=== PATIENT | male | born 1965 | race African-American/Black ===

== ENCOUNTER 2020-06-10 11:26 | Emergency (ER) | payer BC ==
[2020-06-10] MEDS ORDERED: NORMAL SALINE 1000 ML 1,000 ML IV ONE (13:49)
[2020-06-10] MEDS ORDERED: ONDANSETRON HCL INJ/PF 4 MG/2 ML SDV IV ONE (13:49)
--- NOTE | 2020-06-10 14:15 | RADIOLOGY REPORT (SQ) ---
EXAM DESCRIPTION: CT HEAD WITHOUT IMAGES COMPLETED DATE/TIME: 06/10/2020 2:03 pm REASON FOR STUDY: headache COMPARISON: None. TECHNIQUE: Axial images acquired through the brain without intravenous contrast. Images reviewed wi th bone, brain and subdural windows. Additional sagittal and coronal reconstructions were generated. Images stored on PACS. All CT scanners at this facility use dose modulation, iterative reconstruction, and/or weight based d osing when appropriate to reduce radiation dose to as low as reasonably achievable (ALARA). [facility]: Dose Right [facility]: CareDose [facility]: Dose Right [facility]: Teradose 4D [facility]: [employer] RADIATION DOSE: CT Rad equipment meets quality standard of care and radiation dose reduction techniq ues were employed. CTDIvol: 53.2 mGy. DLP: 937 mGy-cm. mGy. LIMITATIONS: None. FINDINGS: VENTRICLES: Normal size and contour. CEREBRUM: No masses. No hemorrhage. No midline shift. No evidence for acute infarction. Normal gra y/white matter differentiation. No areas of low density in the white matter. CEREBELLUM: No masses. No hemorrhage. No alteration of density. No evidence for acute infarction. EXTRAAXIAL SPACES: No fluid collections. No masses. ORBITS AND GLOBE: No intra- or extraconal masses. Normal contour of globe without masses. CALVARIUM: No fracture. PARANASAL SINUSES: No fluid or mucosal thickening. SOFT TISSUES: No mass or hematoma. OTHER: No other significant finding. IMPRESSION: NORMAL BRAIN CT WITHOUT CONTRAST. EVIDENCE OF ACUTE STROKE: NO. COMMENT: Quality ID # [id number]: Final reports with documentation of one or more dose reduction techniques (e.g., Automated exposure control, adjustment of the mA and/or kV according to patient size, use of iterative reconstruction technique) TECHNICAL DOCUMENTATION: JOB ID: [id number] 2010 [employer]- All Rights Reserved Reading location - IP/workstation name: [email or web address]
[2020-06-10 14:20] LABS: ABSOLUTE LYMPHOCYTES (AUTO) 0.8 10^3/uL (0.5-4.7); ABSOLUTE MONOCYTES (AUTO) 0.4 10^3/uL (0.1-1.4); BASOPHILS % (AUTO) 0.2 % (0-2); EOSINOPHILS % (AUTO) 0.1 % (0-6); HEMOGLOBIN 13.3 g/dL (13.5-17.0); LYMPHOCYTES % (AUTO) 13.1 % (13-45); MEAN CORPUSCULAR HEMOGLOBIN 31.4 pg (27.0-33.4); MEAN CORPUSCULAR HGB CONC 35.1 g/dL (32.0-36.0); MEAN CORPUSCULAR VOLUME 89 fl (80-97); MONOCYTES % (AUTO) 5.9 % (3-13); PLATELET COUNT 176 10^3/uL (150-450); RED BLOOD COUNT 4.25 10^6/uL (4.35-5.55); RED CELL DISTRIBUTION WIDTH 13.8 % (11.5-14.0); SEGMENTED NEUTROPHILS % (AUTO) 80.7 % (42-78); TOTAL CELLS COUNTED % (AUTO) 100 %; WHITE BLOOD COUNT 6.1 10^3/uL (4.0-10.5)
--- NOTE | 2020-06-10 14:21 | EKG REPORT ---
SEVERITY:- NORMAL ECG - SINUS RHYTHM : Confirmed by: Chandra Du MD 10-Jun-2020 14:20:17
--- NOTE | 2020-06-10 14:23 | ER Document Report ---
ED General - General Chief Complaint: Nausea/Vomiting Stated Complaint: HEADACHE/VOMITING Time Seen by Provider: 06/10/20 13:34 Notes: 84-year-old male presents to the emergency department complaining of nausea vomiting and dizziness. The patient was at the [facility] and ate some food late last night that was tasting funny. This morning he felt a little bit nauseous when he awoke and went to go fishing he is visiting from [facility] and is on a fishing trip. Unfortunately he began to vomit this morning. [place] really dizzy. Denies any headache or blurred vision denies extremity numbness tingling or weakness is feels dizzy upon standing. He denies any abdominal pain does have some crampiness that is resolved after vomiting. He has had a few loose stools no black bloody or tarry stool. Denies fever chills cough or sore throat. - Related Data Home Medications: Lisinopril Past Medical History - Social History Smoking Status: Never Smoker Family History: Reviewed & Not Pertinent - Past Medical History Cardiac Medical History: Reports: Hx Hypertension Review of Systems - Review of Systems Constitutional: denies: Chills, Fever Respiratory: denies: Cough, Short of breath Gastrointestinal: Nausea, Vomiting Genitourinary: denies: Dysuria, Flank pain -: Yes All other systems reviewed and negative Physical Exam - Vital signs Vitals: Temp Pulse Resp BP Pulse Ox 97.8 F 62 16 134/71 H 100 06/10/20 11:34 06/10/20 11:34 06/10/20 11:34 06/10/20 11:34 06/10/20 11:34 - Notes Notes: GENERAL_APPEARANCE: well_nourished, alert, cooperative, no_acute_distress, no_obvious_discomfort. VITALS: reviewed, see vital signs table. HEAD: no_swelling\tenderness on the head. EYES: PERRL, EOMI, conjunctiva_clear. NOSE: no_nasal_discharge. MOUTH: Dry tongue and mucous membranes THROAT: no_tonsilar_inflammation, no_airway_obstruction. no_lymphadenopathy NECK: supple, no_neck_tenderness, (-)thyromegaly. BACK: no_back_tenderness. CHEST_WALL: no_chest_tenderness. LUNGS: no_wheezing, no_rales, no_rhonchi, (-)accessory muscle use, good air exchange bilateral. HEART: normal_rate, normal_rhythm, normal_S1, normal_S2, (-)S3, (-)S4, no_murmur, no_rub. ABDOMEN: normal_BS, soft, no_abd_tenderness, (-)guarding, (-)rebound, no_organomegaly, no_abd_masses. EXTREMITIES: strength 5/5 in all_extremities, good pulses in all_extremities, no_swelling\tenderness in the extremities, no_edema. SKIN: warm, dry, good_color, no_rash. MENTAL_STATUS: speech_clear, oriented_X_3, normal_affect, responds_appropriately to questions. NEURO: Neg Motor or Sensory Deficits on exam, CN 2-12 intact, DTR 2+ symmetric x 4, No cerbellar signs Course - Re-evaluation Re-evalutation: 06/10/20 14:24 54-year-old male presents to the ER complaining nausea vomiting and dizziness. Sounds as if the patient may have got food poisoning from the Yi he ate last night. We will give him some IV fluids nausea medicine. He does complain of dizziness upon standing. Will do a full work-up on him and monitor him closely. 06/10/20 15:19 CT scan is normal no signs of any stroke hemorrhages or otherwise. Patient felt much better after liter of IV fluid he was likely dehydrated from vomiting. He felt better after Zofran. Will prescribe some Zofran for home for the patient. This may likely be viral or food poisoning. Advised patient to stay here go back in the morning with his . Patient verbalized understanding of any additional problems return to the ER and follow-up with his family doctor. - Vital Signs Vital signs: Temp Pulse Resp BP Pulse Ox 97.8 F 62 16 134/71 H 100 06/10/20 11:34 06/10/20 11:34 06/10/20 11:34 06/10/20 11:34 06/10/20 11:34 - Laboratory Result Diagrams: 06/10/20 13:53 06/10/20 13:53 Laboratory results interpreted by me: 06/10/20 06/10/20 13:53 13:53 RBC 4.25 L Hgb 13.3 L Seg Neutrophils % 80.7 H Glucose 161 H - Diagnostic Test Radiology reviewed: Reports reviewed Radiology results interpreted by me: 06/10/20 15:[address] 06/10/20 13:46 IMPRESSION: NORMAL BRAIN CT WITHOUT CONTRAST. EVIDENCE OF ACUTE STROKE: NO. - EKG Interpretation by Me EKG shows normal: Sinus rhythm Rate: Normal Rhythm: NSR Discharge - Discharge Clinical Impression: Dehydration, Dizziness Nausea & vomiting Qualifiers: Vomiting type: unspecified Vomiting Intractability: unspecified Qualified Code(s): R11.2 - Nausea with vomiting, unspecified Condition: Good Disposition: HOME, SELF-CARE Instructions: Intravenous (IV) Fluids ([facility]), Vomiting ([facility]), Antinausea Medication ([facility]) Prescriptions: Ondansetron [Zofran Odt 4 mg Tablet] 1 - 2 tab PO Q4H PRN #15 tab.rapdis PRN Reason: For Nausea/Vomiting
[2020-06-10 14:31] LABS: ALKALINE PHOSPHATASE 53 U/L (38-126); ANION GAP 9 (5-19); ASPARTATE AMINO TRANSFERASE 25 U/L (17-59); BILIRUBIN,DIRECT 0.1 mg/dL (0.0-0.4); BILIRUBIN,TOTAL 0.7 mg/dL (0.2-1.3); BLOOD UREA NITROGEN 13 mg/dL (7-20); CALCIUM 9.3 mg/dL (8.4-10.2); CARBON DIOXIDE 27 mmol/L (22-30); CHLORIDE 103 mmol/L (98-107); GLUCOSE 161 mg/dL (75-110); POTASSIUM 4.2 mmol/L (3.6-5.0); TOTAL PROTEIN 6.9 g/dL (6.3-8.2)
[2020-06-10 15:45] VITALS: BP 130/70
== END 2020-06-10 15:46 | disposition home or self-care (01) ==
LOC: ER 11:26
DX: E86.0 Dehydration (principal); R42 Dizziness and giddiness; R11.2 Nausea with vomiting, unspecified; R51.9 Headache, unspecified
CPT/HCPCS: 93005; 99285; 96361; 96374; 36415; 83690; 85025; 80053; 70450; 93010; J2405; J7030

== ENCOUNTER 2020-06-10 22:25 | Emergency (ER) | payer BC ==
[2020-06-10 23:59] LABS: ABSOLUTE LYMPHOCYTES (AUTO) 1.1 10^3/uL (0.5-4.7); ABSOLUTE MONOCYTES (AUTO) 0.7 10^3/uL (0.1-1.4); ABSOLUTE NEUT (AUTO) 5.5 10^3/uL (1.7-8.2); BASOPHILS % (AUTO) 0.3 % (0-2); EOSINOPHILS % (AUTO) 0.6 % (0-6); HEMATOCRIT 35.8 % (37.9-51.0); HEMOGLOBIN 13.2 g/dL (13.5-17.0); LYMPHOCYTES % (AUTO) 14.9 % (13-45); MEAN CORPUSCULAR HEMOGLOBIN 32.8 pg (27.0-33.4); MEAN CORPUSCULAR HGB CONC 36.7 g/dL (32.0-36.0); MEAN CORPUSCULAR VOLUME 90 fl (80-97); PLATELET COUNT 176 10^3/uL (150-450); RED BLOOD COUNT 4.01 10^6/uL (4.35-5.55); RED CELL DISTRIBUTION WIDTH 13.7 % (11.5-14.0); SEGMENTED NEUTROPHILS % (AUTO) 75.2 % (42-78); TOTAL CELLS COUNTED % (AUTO) 100 %; WHITE BLOOD COUNT 7.4 10^3/uL (4.0-10.5)
[2020-06-11 00:07] LABS: ALBUMIN 3.7 g/dL (3.5-5.0); ALKALINE PHOSPHATASE 55 U/L (38-126); ANION GAP 9 (5-19); ASPARTATE AMINO TRANSFERASE 21 U/L (17-59); BILIRUBIN,TOTAL 0.7 mg/dL (0.2-1.3); BLOOD UREA NITROGEN 14 mg/dL (7-20); CARBON DIOXIDE 26 mmol/L (22-30); CHLORIDE 106 mmol/L (98-107); GLUCOSE 141 mg/dL (75-110); POTASSIUM 4.1 mmol/L (3.6-5.0); TOTAL PROTEIN 6.9 g/dL (6.3-8.2)
--- NOTE | 2020-06-11 00:19 | ER Document Report ---
ED Dizziness/Weakness - General Chief Complaint: General Weakness Stated Complaint: WEAKNESS Time Seen by Provider: 06/10/20 22:53 - HPI Notes: Patient is a 54-year-old male with a past medical history of hypertension who presents with dizziness and left-sided facial numbness. Patient is a poor historian. He is here visiting on a fishing trip. Patient states he ate [place] food last night. His states that she had some too but did not think that it looked or tasted good so she only ate a small amount. She complained of some abdominal pain. The patient woke up this morning and had nausea and dizziness and vomiting. He was supposed to go on a fishing trip today but could not due to the symptoms. Patient came to the ER earlier today and was diagnosed with food poisoning. He had a normal CAT scan of the head at that time. He states he felt better after Zofran and fluids. Patient went home and took a nap around 4 PM. He states he felt well before he went to bed at 4 PM. When he woke up, he states that he had numbness to the left side of his face. He also is having difficulty walking according to his . Patient's last known well was 4 PM today but symptoms may have been waxing and waning since this morning. He is outside the TPA window due to time of symptom onset. - Related Data Allergies/Adverse Reactions: No Known Allergies Allergy (Unverified 06/11/20 07:28) Past Medical History - General Information source: Patient, Relative - Social History Smoking Status: Never Smoker Chew tobacco use (# tins/day): No Frequency of alcohol use: None Drug Abuse: None Family History: Reviewed & Not Pertinent - Past Medical History Cardiac Medical History: Reports: Hx Hypertension Review of Systems - Review of Systems Notes: CONSTITUTIONAL: No fever, fatigue or weight loss. SKIN: No rash. HENT: No congestion, ear pain, or sore throat. EYES: No recent vision problems or eye pain. CARDIOVASCULAR: No chest pain or edema. RESPIRATORY: No cough, shortness of breath, congestion, or wheezing. GASTROINTESTINAL: No abdominal pain. Positive for nausea and vomiting today. MUSCULOSKELETAL: No joint pain or swelling. LYMPHATIC: No swollen glands. NEUROLOGIC: No seizures. Positive for headaches and left sided facial numbness. Positive for ataxia. HEMATOLOGIC: No unusual bruising or bleeding. PSYCHIATRIC: No depression or anxiety. Physical Exam - Vital signs Vitals: Temp Pulse Resp BP Pulse Ox 98.5 F 59 L 18 145/80 H 100 06/10/20 22:26 06/10/20 22:26 06/10/20 22:26 06/10/20 22:26 06/10/20 22:26 - General General appearance: Other - Appears uncomfortable Notes: VITAL SIGNS: Within normal limits. GENERAL: No acute distress, non-toxic appearance. HEAD: Normal with no signs of head trauma. EYES: EOMI, conjunctiva normal, no discharge. No nystagmus. EARS: Hearing grossly intact. NOSE: Normal. NECK: Normal range of motion, no tenderness, supple, no lymphadenopathy, No adenopathy, no JVD. CHEST: Clear breath sounds bilaterally. No wheezes, rales, or rhonchi. CARDIAC: Regular rate and rhythm. S1 and S2, without murmurs, gallops, or r ubs. VASCULAR: No Edema. ABDOMEN: Normal and soft with no tenderness GENITOURINARY: Normal, No tenderness LYMPATHTIC: No lymphadenopathy noted. MUSCULOSKELETAL: Good range of motion of all major joints. Extremities without clubbing, cyanosis or edema. NEUROLOGICAL: Alert and oriented x 3. Decreased sensation to left side of face. Speech normal. Follows commands appropriately. Strength is 5 out of 5 in upper and lower extremities bilaterally. Range of motion of upper and lower extremities intact. Ataxia on ambulation. PSYCHIATRIC: Normal Affect, judgement and mood. SKIN: Normal appearance with no rashes or lesions. Course - Re-evaluation Re-evalutation: 06/11/20 00:21 Patient's NIH was 1. He will be sent for a CT head and CTA of the head and neck immediately as he had blood work earlier today. Patient is outside the TPA window as his time of onset was 4 PM. 06/11/20 00:52 I received a call from radiology that patient has a left vertebral artery occlusion. I immediately called [facility] to speak with a neurologist. 06/11/20 01:02 06/11/20 05:49 I discussed with the neurologist at [facility] immediately after getting the CTA results. She discussed with the intervention team and they did not nikki mmend intervention and they stated that he was outside the window for TPA also. I discussed with the hospitalist, Dr. Robles, who will admit the patient to her service at [facility]. Currently, we are awaiting transport. I have reassessed the patient. He continues to have an NIH of 1. He is moving all his extremities equally. Patient will be signed out to my colleague while awaiting transport. 06/12/20 01:59 - Vital Signs Vital signs: Temp Pulse Resp BP Pulse Ox 97.7 F 49 L 15 116/71 100 06/11/20 09:34 06/11/20 09:34 06/11/20 09:34 06/11/20 09:34 06/11/20 09:34 - Laboratory Result Diagrams: 06/10/20 23:43 06/10/20 23:43 Laboratory results interpreted by me: 06/10/20 06/10/20 23:43 23:43 RBC 4.01 L Hgb 13.2 L Hct 35.8 L MCHC 36.7 H Glucose 141 H - Diagnostic Test Radiology reviewed: Image reviewed, Reports reviewed - EKG Interpretation by Me EKG shows normal: Sinus rhythm Rate: Normal Rhythm: NSR Additional EKG results interpreted by me: 06/11/20 00:23 Sinus rhythm at a rate of 53. QTc 425. No acute ST changes. No previous EKG available for comparison. Critical Care Note - Critical Care Note Total time excluding time spent on procedures (mins): 30 Comments: Upon my evaluation, this patient had a high probability of imminent or life- threatening deterioration due to stroke symptoms, which required my direct attention, intervention, and personal management. I have personally provided 30 minutes of critical care time. Time includes review of laboratory data, radiology results, discussion with consultants, and monitoring for potential decompensation. Discharge - Discharge Clinical Impression: Ataxia Vertebral artery occlusion Qualifiers: Laterality: left Qualified Code(s): I65.02 - Occlusion and stenosis of left vertebral artery Condition: Stable Disposition: [facility]
--- NOTE | 2020-06-11 00:26 | RADIOLOGY REPORT (SQ) ---
CT HEAD WITHOUT IV CONTRAST CLINICAL STATEMENT: numbness left face TECHNIQUE: Axial CT images from skull base to vertex without IV contrast. This exam was performed according to our departmental dose optimization program, and includes the following measures where applicable: automated exposure control, adjustment of the mAs and/or kVp according to patient size and/or exam, and an iterative reconstruction algorithm. COMPARISON: Unenhanced CT scan of the brain obtained earlier at the day at 1:53 PM FINDINGS: There is no acute intracranial hemorrhage, mass, mass effect or abnormal extra-axial fluid collection. No evidence of an acute territorial infarct is identified. The ventricles are normal. Calvaria: The skull base and calvaria demonstrate no abnormality. Paranasal sinuses: Visualized portions of the orbits and paranasal sinuses are unremarkable. skull base: Unremarkable IMPRESSION: No acute process. No significant interval change.
--- NOTE | 2020-06-11 00:45 | RADIOLOGY REPORT (SQ) ---
EXAM: 1. CT neck angiography with intravenous contrast. 2. CT head angiography with intravenous contrast. CLINICAL DATA: 54 years Male numbness left face. TECHNICAL DATA: Following dynamic intravenous nonionic contrast infusion, multiple axial helical CT images with multiplanar reconstructions were obtained through the head and neck. Coronal and sagittal MIP images were performed. The CT study is performed according to ALARA (as low as reasonably achievable) or ALARA/IMAGE GENTLY, with automatic adjustment of mA and/or kV according to patient size. Performed on: 06/10/2020 at 11:50 PM COMPARISONS: Head CT without contrast performed on 06/10/2020 FINDINGS: CTA NECK: AORTA: The aortic arch is well imaged and demonstrates conventional branching. The origins of the left subclavian artery, left common carotid artery and innominate artery are patent. VERTEBRAL ARTERIES: The LEFT vertebral artery is occluded at its origin. There is segmental reconstitution of the left vertebral artery at approximately the C3-C4 level with very limited to no significant flow identified beyond this level. The RIGHT vertebral artery is normal in caliber and contour without evidence of dissection or significant stenosis. CAROTID ARTERIES: The LEFT common carotid artery is unremarkable. There is no evidence of stenosis, dissection or occlusion The carotid bulb demonstrates no significant plaque. The LEFT internal carotid artery is normal in caliber and contour without evidence of significant stenosis, dissection or occlusion. The LEFT external carotid artery is unremarkable. The RIGHT common carotid artery is unremarkable. There is no evidence of stenosis, dissection or occlusion. The carotid bulb demonstrates no significant plaque. The RIGHT internal carotid artery is unremarkable. There is no evidence of stenosis, dissection or occlusion. The RIGHT external carotid artery is unremarkable. CTA HEAD: LEFT: INTERNAL CAROTID ARTERY: The distal internal carotid artery is unremarkable. ANTERIOR CEREBRAL ARTERY:The A1 segment is normal in caliber and contour. The A2 segment is normal in caliber and contour. The region of the anterior communicating artery is unremarkable. MIDDLE CEREBRAL ARTERY: The M1 segment is normal in caliber and contour. The M2 branches normal in caliber and contour. POSTERIOR CEREBRAL ARTERY:The P1 segment is normal in caliber and contour. The P2 segment is normal in caliber and contour. The left posterior communicating artery is hypoplastic. VERTEBRAL ARTERY: The intradural left vertebral artery is absent. There is a faint wisp of contrast in the most distal left vertebral artery secondary to reflux from the basilar artery. RIGHT: INTERNAL CAROTID ARTERY: The distal internal carotid artery is unremarkable. ANTERIOR CEREBRAL ARTERY: The A1 segment is normal in caliber and contour. The A2 segment is normal in caliber and contour. MIDDLE CEREBRAL ARTERY:The M1 segment is normal in caliber and contour. The M2 branches normal in caliber and contour. POSTERIOR CEREBRAL ARTERY: The P1 segment is normal in caliber and contour. The P2 segment is normal in caliber and contour. The right posterior communicating artery is patent. VERTEBRAL ARTERY: The intradural right vertebral artery is normal in caliber and contour. BASILAR ARTERY: The basilar artery is normal in caliber and contour. DURAL VENOUS SINUSES: The dural venous sinuses are patent. NON-ANGIOGRAPHIC FINDINGS: The lung apices are clear. The thyroid gland is normal in size and configuration and demonstrates homogeneous enhancement. There are very mild degenerative changes of the cervical spine most pronounced at C5-C6 and C6-C7. The paranasal sinuses are clear. The mastoid air cells and middle ear cavities are clear. The orbital contents are grossly unremarkable. No acute intracranial abnormalities are identified. IMPRESSION: CTA NECK: 1. Occlusion of the left vertebral artery at its origin. There is faint segmental reconstitution of the left vertebral artery at the C3-C4 level with no significant flow identified beyond this level. 2. Otherwise, normal CTA of the neck. CTA HEAD: 1. Normal intracranial CTA. These findings were discussed with Dr. Elizabeth Em on 06/10/2020 at 11:41 PM Central time.
--- NOTE | 2020-06-11 00:46 | RADIOLOGY REPORT (SQ) ---
EXAM DESCRIPTION: XR CHEST 1 VIEW COMPLETED DATE/TME: 06/10/2020 23:17 CLINICAL HISTORY: stroke work up COMPARISON: None. FINDINGS: Single frontal radiograph view of the chest. Cardiomediastinal silhouette: Normal size and contour. Lungs: No consolidation, pneumothorax, or pleural effusion. Elevation of the right hemidiaphragm. Leads overlie the chest. Bones: No acute osseous abnormality. Upper abdomen: No abnormality identified. IMPRESSION: 1. No acute pulmonary process identified.
[2020-06-11] MEDS ORDERED: ASPIRIN 325 MG TABLET PO ONE (04:56)
[2020-06-11] MEDS ORDERED: NORMAL SALINE 1000 ML 1,000 ML IV ONE (05:16)
--- NOTE | 2020-06-11 06:26 | EKG REPORT ---
SEVERITY:- ABNORMAL ECG - SINUS RHYTHM PROBABLE ANTEROSEPTAL INFARCT, OLD NONSPECIFIC ST-T CHANGES- INFERIOR LEADS : Confirmed by: Chandra Du MD 11-Jun-2020 06:25:28
[2020-06-11 07:15] VITALS: BP 116/71
== END 2020-06-11 08:25 | disposition short-term general hospital (02) ==
LOC: ER 22:25
DX: I65.02 Occlusion and stenosis of left vertebral artery (principal); R27.0 Ataxia, unspecified; R53.1 Weakness; I10 Essential (primary) hypertension; R20.0 Anesthesia of skin
CPT/HCPCS: 93005; 99285; 96360; 96361; 36415; 87070; 84484; 71045; 70450; 70496; 70498; 93010; J7030